=== PATIENT | female | born 1975 | race Caucasian/White ===

== ENCOUNTER 2019-04-20 12:56 | Emergency (ER) | payer SELFPAY ==
[~2019-04-20] VITALS: Ht 165.1 cm; Wt 68.2 kg
[~2019-04-20 12:56] MED LIST: ACET-2027 PO; ACYC400T21 PO; ALBU2.5V52 INH; ASPI-84 PO; AZIT-21 PO; CODE-54 PO; CYCL10TA9 PO; FAMO20TA73 PO; GLIM4TAB PO; LEVO500T69 PO; LISI10TA2 PO; METF-380 PO; MTF500T PO; NEBU1EAC10 MC; ONDA-42 SL; OSLT75CRX PO; PRD20T PO; PREN1TAB39 PO; TRAM50TA2 PO
[2019-04-20] MEDS ORDERED: RT-ALBUTEROL SULF 2.5 MG/3 ML PRE-MIX VIAL INH STA (13:13)
[2019-04-20] MEDS ORDERED: NS IV 1000 ML 1,000 ML IV SCH ×2 (13:13)
[2019-04-20] MEDS ORDERED: RT-SODIUM CHL INHALATION 3 ML VIAL IH ONE (13:15)
[2019-04-20] MEDS ORDERED: cefTRIAXone FOR IV USE 1,000 MG in WATER (STERILE) FOR INJECTION 10 ML IV ONE (13:15)
[2019-04-20] MEDS ORDERED: AZITHROMYCIN INJECTION 500 MG in NS (IVPB) 250 ML IV ONE (13:15)
[2019-04-20] MEDS ORDERED: RT-IPRATROPIUM (ATROVENT) 0.5MG/2.5ML AMP IH ONE (13:15)
--- NOTE | 2019-04-20 13:24 | ED Respiratory ---
General Chief Complaint: Respiratory Problems Stated Complaint: SOA Source: patient, family, EMS Exam Limitations: no limitations History of Present Illness Date Seen by Provider: Apr 20, 2019 Time Seen by Provider: 12:58 Initial Comments The patient presents to ER by EMS from station 3 where family drove her. She has chief complaint of shortness of breath wheezing coughing and nausea vomiting starting about 30 minutes prior to arrival. She had an albuterol inhaler left over from a bronchitis from years ago that she tried use but she was coughing so hard she said she was not able take deep breath and use it. EMS said her oxygen sats were 90% with audible wheezes I gave her albuterol treatment which improved her wheezing and her oxygen sats to 92% on room air. She does not have a history of asthma or COPD. She does not smoke or use recreational drugs or drink alcohol. She does not have a history of coronary disease. She does have a history of diabetes, hyperlipidemia and hypertension. Prior to that she was feeling like she had upper respiratory cold for the past week and a right earache. She went to her doctor late last week and they cleaned out the cerumen from her right ear canal put her on some eardrops and gave her a nasal steroid spray but did not obtain chest x-rays or labs that time. Her cough has been nonproductive. Allergies and Home Medications Allergies Uncoded Allergies: PENICILLIN (Allergy, Unknown, 05/15/14) Home Medications Acetaminophen/Chlor-Mal 1 Each Tablet, 1 EACH PO Q8H PRN for COUGH Prescribed by: KAILEY HOLLOWAY on 08/04/14 1212 Acetaminophen/Codeine 1 Tab Tablet, 1 TAB PO PRN, (Reported) Acyclovir 400 Mg Tablet, 400 MG PO TID, (Reported) Albuterol Sulfate 2.5 Mg/3 Ml Nebu, 2.5 MG INH QID Prescribed by: HENRY SUGGS on 05/15/142101 Azithromycin 250 Mg Tab, 1 TAB PO DAILY Prescribed by: HENRY SUGGS on 05/15/142101 Cyclobenzaprine Hcl 10 Mg Tablet, 1 EACH PO Q8H PRN for SPASMS Prescribed by: HENRY SUGGS on 01/18/15 1324 Glimepiride 4 Mg Tablet, 4 MG PO BID, (Reported) Levofloxacin 500 Mg Tab, 1 EACH PO DAILY Prescribed by: KAILEY HOLLOWAY on 08/04/14 1221 Lisinopril 10 Mg Tablet, 10 MG PO DAILY, (Reported) Metformin Hcl 500 Mg Tablet, 1 EACH PO BID WITH MEALS, (Reported) Ondansetron Hcl 4 Mg Tab, 4 MG SL Q4H PRN for NAUSEA/VOMITING FOR NAUSEA AND VOMITING Prescribed by: KAILEY HOLLOWAY on 08/04/14 1227 Oseltamivir Phosphate 75 Mg Cap, 75 MG PO BID Prescribed by: KAILEY HOLLOWAY on 08/04/14 1212 Prednisone 20 Mg Tablet, 40 MG PO DAILY Prescribed by: HENRY SUGGS on 05/15/14 210 Tramadol Hcl 50 Mg Tablet, 50 MG PO Q4H PRN for PAIN Prescribed by: HENRY SUGGS on 01/18/15 1324 Patient Home Medication List Home Medication List Reviewed: Yes Review of Systems Review of Systems Constitutional: chills, diaphoresis, fever (subjective only), malaise EENTM: No ear discharge, No ear pain Respiratory: cough; No phlegm; short of breath, wheezing Cardiovascular: No chest pain, No palpitations Gastrointestinal: No abdominal pain; nausea (none presently); No vomiting Genitourinary: No discharge, No dysuria Musculoskeletal: No back pain, No joint pain Past Rblklks-Xyzefg-Slnhbx Hx Patient Social History Alcohol Use: Denies Use Recreational Drug Use: No Smoking Status: Never a Smoker Immunizations Up To Date Date of Pneumonia Vaccine: Jun 29, 2012 Date of Influenza Vaccine: Mar 28, 2014 Seasonal Allergies Seasonal Allergies: Yes Past Medical History Hypertension Reproductive Disorders: No Diabetes, Non-Insulin dep Family Medical History No Pertinent Family Hx Physical Exam Vital Signs - First Documented 04/20/19 12:57 Temp 37.2 Pulse 100 Resp 24 B/P (MAP) 178/108 (131) Pulse Ox 96 O2 Delivery Room Air O2 Flow Rate 2.00 Capillary Refill : Height: 5'4" Weight: 250lbs. oz. [id number]; BMI Method:Stated General Appearance: moderate distress, obese Eyes: Bilateral Eye Normal Inspection, Bilateral Eye PERRL, Bilateral Eye EOMI HEENT: PERRL/EOMI, TMs normal, pharynx normal, other (right ear canal pink but without excoriation or inf edema lammation) Neck: non-tender, full range of motion, supple, normal inspection Respiratory: chest non-tender, respiratory distress (mild to moderate), accessory muscle use (mild), wheezing (prolonged expiratory wheezing with some inspiratory wheezing) Cardiovascular: normal peripheral pulses, regular rate, rhythm (. Heart rate in the 90s), no edema Gastrointestinal: normal bowel sounds, non tender, soft Neurologic/Psychiatric: no motor/sensory deficits, alert; No normal mood/affect (mildly anxious); oriented x 3 Skin: normal color, warm/dry Focused Exam Lactate Level 04/20/19 13:20: Lactic Acid Level 1.56 Lactic Acid Level Laboratory Tests Test 04/20/19 13:20 Lactic Acid Level 1.56 MMOL/L (0.50-2.00) Progress/Results/Core Measures Suspected Sepsis SIRS Temperature: Pulse: Respiratory Rate: Laboratory Tests 04/20/19 13:20: White Blood Count 10.2 Blood Pressure / Mean: 04/20/19 13:20: Lactic Acid Level 1.56 Laboratory Tests 04/20/19 13:20: Creatinine 0.74, INR Comment 0.9, Platelet Count 278, Total Bilirubin 0.3 Results/Orders Lab Results Laboratory Tests Test 04/20/19 13:20 04/20/19 13:27 04/20/19 14:55 Range/Units White Blood Count 10.2 4.3-11.0 10^3/uL Red Blood Count 4.75 4.35-5.85 10^6/uL Hemoglobin 13.2 11.5-16.0 G/DL Hematocrit 41 35-52 % Mean Corpuscular Volume 86 80-99 FL Mean Corpuscular Hemoglobin 28 25-34 PG Mean Corpuscular Hemoglobin Concent 32 32-36 G/DL Red Cell Distribution Width 14.2 10.0-14.5 % Platelet Count 278 130-400 10^3/uL Mean Platelet Volume 11.2 H 7.4-10.4 FL Neutrophils (%) (Auto) 55 42-75 % Lymphocytes (%) (Auto) 33 12-44 % Monocytes (%) (Auto) 4 0-12 % Eosinophils (%) (Auto) 7 0-10 % Basophils (%) (Auto) 1 0-10 % Neutrophils # (Auto) 5.6 1.8-7.8 X 10^3 Lymphocytes # (Auto) 3.4 1.0-4.0 X 10^3 Monocytes # (Auto) 0.4 0.0-1.0 X 10^3 Eosinophils # (Auto) 0.7 H 0.0-0.3 10^3/uL Basophils # (Auto) 0.1 0.0-0.1 10^3/uL Prothrombin Time 12.1 L 12.2-14.7 SEC INR Comment 0.9 0.8-1.4 Activated Partial Thromboplast Time 23 L 24-35 SEC Sodium Level 135 135-145 MMOL/L Potassium Level 4.0 3.6-5.0 MMOL/L Chloride Level 103 98-107 MMOL/L Carbon Dioxide Level 24 21-32 MMOL/L Anion Gap 8 5-14 MMOL/L Blood Urea Nitrogen 8 7-18 MG/DL Creatinine 0.74 0.60-1.30 MG/DL Estimat Glomerular Filtration Rate > 60 BUN/Creatinine Ratio 11 Glucose Level 197 H 70-105 MG/DL Lactic Acid Level 1.56 0.50-2.00 MMOL/L Calcium Level 8.9 8.5-10.1 MG/DL Corrected Calcium 9.1 8.5-10.1 MG/DL Magnesium Level 1.9 1.6-2.4 MG/DL Total Bilirubin 0.3 0.1-1.0 MG/DL Aspartate Amino Transf (AST/SGOT) 40 H 5-34 U/L Alanine Aminotransferase (ALT/SGPT) 46 0-55 U/L Alkaline Phosphatase 114 40-136 U/L Total Protein 7.0 6.4-8.2 GM/DL Albumin 3.7 3.2-4.5 GM/DL Blood Gas Puncture Site LEFT RADIAL Blood Gas Patient Temperature 37 Arterial Blood pH 7.35 L 7.37-7.43 Arterial Blood Partial Pressure CO2 41 35-45 MMHG Arterial Blood Partial Pressure O2 81 79-93 MMHG Arterial Blood HCO3 22 L 23-27 MMOL/L Arterial Blood Total CO2 23.4 21.0-31.0 MMOL/L Arterial Blood Oxygen Saturation 95 94-100 % Arterial Blood Base Excess -2.5 -2.5-2.5 MMOL/L Alberto Test POSITIVE Blood Gas Ventilator Setting NO Blood Gas Inspired Oxygen 2 L Micro Results Microbiology 04/20/19 Influenza Types A,B Antigen ([facility]) - Final, Complete My Orders Orders - KRISTIE DENNY Cbc With Automated Diff (04/20/19 13:13) Comprehensive Metabolic Panel (04/20/19 13:13) Blood Culture (04/20/19 13:13) Sputum Culture (04/20/19 13:13) Urinalysis (04/20/19 13:13) Urine Culture (04/20/19 13:13) Protime With Inr (04/20/19 13:13) Partial Thromboplastin Time (04/20/19 13:13) Ed Iv/Invasive Line Start (04/20/19 13:13) Ed Iv/Invasive Line Start (04/20/19 13:13) Vital Signs Adult Sepsis Patie Q15M (04/20/19 13:13) O2 (04/20/19 13:13) Remove Rings In Anticipation O (04/20/19 13:13) Lactic Acid Analyzer (04/20/19 13:13) Influenza A And B Antigens (04/20/19 13:13) Ns Iv 1000 Ml (Sodium Chloride 0.9%) (04/20/19 13:13) Ceftriaxone For Iv Use (Rocephin For I (04/20/19 13:15) Azithromycin Injection (Zithromax Inject (04/20/19 13:15) Ed Iv/Invasive Line Start (04/20/19 13:13) Ns Iv 1000 Ml (Sodium Chloride 0.9%) (04/20/19 13:13) Albuterol Pre-Mix Nebs (Rt) (Proventil (04/20/19 13:13) Ipratropium 0.02% Neb Solution (Atrovent (04/20/19 13:15) Sodium Chl Inhalation (Rt-Sodium Chl Inh (04/20/19 13:15) Svn Small Volume Nebulizer (04/20/19 13:13) Magnesium (04/20/19 13:13) Arterial Blood Gas (04/20/19 13:27) Chest 1 View, Ap/Pa Only (04/20/19 13:43) Arterial Blood Draw (04/20/19 ) Water (Sterile) For Injection (Sterile W (04/20/19 14:01) Methylprednisolone Sod Succ (Solu-Medrol (04/20/19 14:15) Medications Given in ED Current Medications Medications Dose Ordered Sig/Sukhi Route Start Time Stop Time Status Last Admin Dose Admin Azithromycin 500 mg/Sodium Chloride 250 ml @ 250 mls/hr ONCE ONCE IV 04/20/19 13:15 04/20/19 14:14 DC 04/20/19 14:09 250 MLS/HR Ceftriaxone Sodium 1000 mg/ Sterile Water 10 ml @ 200 mls/hr ONCE ONCE IV 04/20/19 13:15 04/20/19 13:18 DC 04/20/19 14:05 200 MLS/HR Ipratropium Kemp 0.5 mg ONCE ONCE IH 04/20/19 13:15 04/20/19 13:18 DC 04/20/19 13:31 0.5 MG Methylprednisolone Sodium Succinate 125 mg ONCE ONCE IVP 04/20/19 14:15 04/20/19 14:16 DC 04/20/19 14:25 125 MG Vital Signs/I&O 04/20/19 04/20/19 04/20/19 12:57 12:57 13:31 Temp 37.2 Pulse 100 Resp 24 B/P (MAP) 178/108 (131) Pulse Ox 96 96 97 O2 Delivery Room Air Nasal Cannula Nasal Cannula O2 Flow Rate 2.00 2.00 2.00 Capillary Refill : Progress Note #1: Time: 13:23 Progress Note Hour-long breathing treatment, ABG, 2 view chest x-ray, septic workup and we will initiate ceftriaxone and azithromycin. She has a stated history of allergy to penicillin but she doesn't know what it is and she is not really sure if it's a real allergy. She denies any nausea at this time. She is afebrile this time. We put her on 2 L by nasal cannula which brought her up from 92% on room air to 96%. Progress Note #2: Time: 15:09 Progress Note Patient's breathing has significantly improved. On room air she is now satting 96%. She has received some IV Solu-Medrol. She is no longer in acute distress and has unremarkable labs and ABG. We have counseled her about her blood sugars as were going to put her on steroids for bronchitis. We've also encouraged her to follow-up in one to 2 months with primary care to discuss doing outpatient pulmonary function testing. She has plenty of albuterol for her nebulizer at [facility]. Follow-up next week with primary care for reevaluation. Diagnostic Imaging Diagonstic Imaging: Xray Plain Films/CT/US/NM/MRI: chest (2v) Comments NAME: PATRICE YOUNG [facility] REC#: [id number] PHYSICIAN: KRISTIE DENNY MD CC: ELHAM STEIN MD; KRISTIE DENNY Page 1 of 1 RADIOLOGY REPORT [facility], [facility]. [place], [place] CC: ELHAM STEIN MD; KRISTIE DENNY Page 1 of 1 RADIOLOGY REPORT NAME: PATRICE YONUG [facility] REC#: [id number] PT STATUS: REG ER : 1975 PHYSICIAN: KRISTIE DENNY MD ADMIT DATE: 04/20/19/ER Signed Date of Exam: 04/20/19 CHEST 1 VIEW, AP/PA ONLY INDICATION: Shortness of breath Portable chest 11:51 p.m. FINDINGS: Heart size and pulmonary vascularity are normal. Lungs are clear. There are no effusions or pneumothoraces. IMPRESSION: Negative chest. Dictated by: Dictated on workstation # [id number] Dict: 04/20/19 1358 Trans: 04/20/19 1442 Interpreted by: ELHAM STEIN MD Electronically signed by: ELHAM STEIN MD 04/20/19 1442 Reviewed: Reviewed by Me Departure Impression Primary Impression: Acute bronchitis Qualified Codes: J20.9 - Acute bronchitis, unspecified Disposition: 01 HOME, SELF-CARE Condition: Improved Departure-Patient Inst. Decision time for Depature: 15:12 Referrals: SUMEET LANE DO (PCP) Primary Care Physician Patient Instructions: Acute Bronchitis, Adult (DC) Add. Discharge Instructions: Start using your nebulized albuterol [id number] every 6 hours or 4 times a day on a schedule. You may take one breathing treatment between scheduled treatments as necessary for wheezing or shortness of breath. Start taking prednisone 2 tablets twice a day for the next 5 days. Plan follow-up primary care doctor early next week by calling today for an appointment. Discuss pulmonary function testing with your primary care doctor in the next couple months. All discharge instructions reviewed with patient and/or family. Voiced understanding. Scripts Prednisone (Prednisone) 20 Mg Tab 40 MG PO BID for 5 Days, #20 TAB 0 Refills Prov: KRISTIE DENNY 04/20/19 Work/School Note: Work Release Form Date Seen in the Emergency Department: Apr 20, 2019 Return to Work: Apr 22, 2019 Restrictions: No Restrictions KRISTIE DENNY Apr 20, 2019 13:24
[2019-04-20 13:28] LABS: BASOPHILS # (AUTO) 0.1 10^3/uL (0.0-0.1); BASOPHILS % (AUTO) 1 % (0-10); EOSINOPHILS # (AUTO) 0.7 10^3/uL (0.0-0.3); EOSINOPHILS % (AUTO) 7 % (0-10); HEMATOCRIT 41 % (35-52); HEMOGLOBIN 13.2 G/DL (11.5-16.0); LYMPHOCYTES # (AUTO) 3.4 X 10^3 (1.0-4.0); LYMPHOCYTES % (AUTO) 33 % (12-44); MEAN CORPUSCULAR HEMOGLOBIN 28 PG (25-34); MEAN CORPUSCULAR HGB CONC 32 G/DL (32-36); MEAN CORPUSCULAR VOLUME 86 FL (80-99); MEAN PLATELET VOLUME 11.2 FL (7.4-10.4); MONOCYTES # (AUTO) 0.4 X 10^3 (0.0-1.0); MONOCYTES % (AUTO) 4 % (0-12); NEUTROPHILS # (AUTO) 5.6 X 10^3 (1.8-7.8); NEUTROPHILS % (AUTO) 55 % (42-75); PLATELET COUNT 278 10^3/uL (130-400); RED CELL DISTRIBUTION WIDTH 14.2 % (10.0-14.5); WHITE BLOOD COUNT 10.2 10^3/uL (4.3-11.0)
[2019-04-20 13:34] LABS: ABG BASE EXCESS -2.5 MMOL/L (-2.5-2.5); ABG OXYGEN SATURATION 95 % (94-100); ABG PCO2 41 MMHG (35-45); ABG PH 7.35 (7.37-7.43); ABG PO2 81 MMHG (79-93); ABG TCO2 23.4 MMOL/L (21.0-31.0)
[2019-04-20 13:36] LABS: ALLENS TEST POSITIVE
[2019-04-20 13:37] LABS: INSPIRED O2 2 L; PATIENT TEMP 37; VENTILATOR NO
[2019-04-20 13:44] LABS: INR 0.9 (0.8-1.4); PROTHROMBIN TIME PATIENT 12.1 SEC (12.2-14.7)
[2019-04-20 13:51] LABS: ALANINE AMINOTRANSFERASE 46 U/L (0-55); ALBUMIN 3.7 GM/DL (3.2-4.5); ALKALINE PHOSPHATASE 114 U/L (40-136); BILIRUBIN,TOTAL 0.3 MG/DL (0.1-1.0); BUN/CREATININE RATIO 11; CALCIUM 8.9 MG/DL (8.5-10.1); CARBON DIOXIDE 24 MMOL/L (21-32); CHLORIDE 103 MMOL/L (98-107); CREATININE SERUM 0.74 MG/DL (0.60-1.30); GFR ESTIMATED > 60; GLUCOSE 197 MG/DL (70-105); MAGNESIUM 1.9 MG/DL (1.6-2.4); SODIUM 135 MMOL/L (135-145)
[2019-04-20] MEDS ORDERED: WATER (STERILE) FOR INJECTION 10 ML ONE (14:01)
--- NOTE | 2019-04-20 14:02 | Diagnostic Imaging Report ---
INDICATION: Shortness of breath Portable chest 11:51 p.m. FINDINGS: Heart size and pulmonary vascularity are normal. Lungs are clear. There are no effusions or pneumothoraces. IMPRESSION: Negative chest. Dictated by: Dictated on workstation # [id number]
[2019-04-20] MEDS ORDERED: methylPREDNISolone 125 MG (Solu-MEDROL) VIAL IVP ONE (14:15)
[2019-04-20 15:15] LABS: BILIRUBIN,URINE NEGATIVE (NEGATIVE); CLARITY,URINE CLEAR; COLOR,URINE YELLOW; GLUCOSE, URINE (UA) 4+ (NEGATIVE); KETONES,URINE NEGATIVE (NEGATIVE); LEUKOCYTE ESTERASE ,URINE NEGATIVE (NEGATIVE); NITRITE,URINE NEGATIVE (NEGATIVE); PH,URINE 5 (5-9); PROTEIN,URINE 3+ (NEGATIVE)
[2019-04-20] MEDS ORDERED: PRD20T PO (15:16)
[2019-04-20 15:25] VITALS: BP 166/104
[2019-04-20 15:30] LABS: BACTERIA,URINE MODERATE /HPF
== END 2019-04-20 15:25 | disposition home or self-care (01) ==
LOC: EDUNIT# 12:56 → ER 12:57
DX: J20.9 Acute bronchitis, unspecified (principal); E11.9 Type 2 diabetes mellitus without complications; I10 Essential (primary) hypertension; E78.5 Hyperlipidemia, unspecified; Z88.0 Allergy status to penicillin; Z79.84 Long term (current) use of oral hypoglycemic drugs; Z79.52 Long term (current) use of systemic steroids
CPT/HCPCS: 36415; 36600; 71045; 80053; 81000; 82805; 83605; 83735; 85025; 85610; 85730; 87040; 87088; 87804; 94640; 94644; 96361; 96374; 96375

== ENCOUNTER 2019-06-03 23:27 | Inpatient (IN) | payer SELFPAY ==
[~2019-06-03] VITALS: Ht 167.7 cm; Wt 117.3 kg
[2019-06-03] MEDS ORDERED: methylPREDNISolone 125 MG (Solu-MEDROL) VIAL IV STA (23:33)
[2019-06-03] MEDS ORDERED: NS IV 1000 ML 1,000 ML IV SCH ×2 (23:33)
[2019-06-03] MEDS ORDERED: RT-ALBUTEROL SULF 2.5 MG/3 ML PRE-MIX VIAL INH STA (23:33)
--- NOTE | 2019-06-03 23:40 | ED Respiratory ---
General Chief Complaint: Respiratory Problems Stated Complaint: SOA Source: patient Exam Limitations: no limitations History of Present Illness Date Seen by Provider: Jun 03, 2019 Time Seen by Provider: 23:27 Initial Comments Patient presents to ER by private conveyance chief complaint shortness of breath wheezing nonproductive cough. Had some subjective chills yesterday but no fever. She's having some pain in her left chest radiating around from the back to the front worse on inspiration or coughing. No history of coronary disease. She is not a smoker. She doesn't not have known COPD or asthma but she has been dealing with this since February and has been on albuterol inhaler and pro-air. She's taken about 8 doses today. She sees Aura Soares at [facility]. 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 She has been on steroids throughout this upset but not presently. It got worse in the past day or so. Allergies and Home Medications Allergies Uncoded Allergies: PENICILLIN (Allergy, Unknown, 05/15/14) Home Medications Acetaminophen/Chlor-Mal 1 Each Tablet, 1 EACH PO Q8H PRN for COUGH Prescribed by: KAILEY HOLLOWAY on 08/04/14 1212 Acetaminophen/Codeine 1 Tab Tablet, 1 TAB PO PRN, (Reported) Acyclovir 400 Mg Tablet, 400 MG PO TID, (Reported) Albuterol Sulfate 2.5 Mg/3 Ml Nebu, 2.5 MG INH QID Prescribed by: HENRY SUGGS on 05/15/142101 Azithromycin 250 Mg Tab, 1 TAB PO DAILY Prescribed by: HENRY SUGGS on 05/15/142101 Cyclobenzaprine Hcl 10 Mg Tablet, 1 EACH PO Q8H PRN for SPASMS Prescribed by: HENRY SUGGS on 01/18/15 1324 Glimepiride 4 Mg Tablet, 4 MG PO BID, (Reported) Levofloxacin 500 Mg Tab, 1 EACH PO DAILY Prescribed by: KAILEY HOLLOWAY on 08/04/14 1221 Lisinopril 10 Mg Tablet, 10 MG PO DAILY, (Reported) Metformin Hcl 500 Mg Tablet, 1 EACH PO BID WITH MEALS, (Reported) Ondansetron Hcl 4 Mg Tab, 4 MG SL Q4H PRN for NAUSEA/VOMITING FOR NAUSEA AND VOMITING Prescribed by: KAILEY HOLLOWAY on 08/04/14 1227 Oseltamivir Phosphate 75 Mg Cap, 75 MG PO BID Prescribed by: KAILEY HOLLOWAY on 08/04/14 1212 Prednisone 20 Mg Tablet, 40 MG PO DAILY Prescribed by: HENRY SUGGS on 05/15/142101 Prednisone 20 Mg Tab, 40 MG PO BID Prescribed by: KRISTIE DENNY on 04/20/19 1516 Tramadol Hcl 50 Mg Tablet, 50 MG PO Q4H PRN for PAIN Prescribed by: HENRY SUGGS on 01/18/15 1324 Patient Home Medication List Home Medication List Reviewed: Yes Review of Systems Review of Systems Constitutional: No chills, No diaphoresis, No fever; malaise EENTM: No ear discharge, No hearing loss, No ear pain Respiratory: cough; No phlegm; short of breath; No stridor Cardiovascular: No chest pain, No edema Gastrointestinal: No abdominal pain, No nausea, No vomiting Genitourinary: No discharge, No dysuria : No Musculoskeletal: No back pain, No joint pain Skin: No pruritus, No rash Psychiatric/Neurological: Denies Headache, Denies Numbness All Other Systems Reviewed Negative Unless Noted: Yes Past Ruylpxa-Tofsms-Fekmcy Hx Patient Social History Alcohol Use: Denies Use Recreational Drug Use: No Smoking Status: Never a Smoker 2nd Hand Smoke Exposure: No Immunizations Up To Date Date of Pneumonia Vaccine: Jun 29, 2012 Date of Influenza Vaccine: Mar 28, 2014 Seasonal Allergies Seasonal Allergies: Yes Past Medical History Surgeries: No Respiratory: Yes Asthma, Chronic Bronchitis Currently Using CPAP: No Currently Using BIPAP: No Cardiac: Yes Hypertension Neurological: No Reproductive Disorders: No Gastrointestinal: No Musculoskeletal: No Endocrine: Yes Diabetes, Insulin dep, Diabetes, Non-Insulin dep HEENT: No Cancer: No Psychosocial: No Integumentary: Yes (SHINGLES) Blood Disorders: No Family Medical History No Pertinent Family Hx Physical Exam Vital Signs - First Documented 06/03/19 23:30 Temp 36.6 Pulse 98 Resp 22 B/P (MAP) 187/107 (133) Capillary Refill : Height: 5'4" Weight: 250lbs. oz. 113.803895rl; 25.00 BMI Method:Stated General Appearance: WD/WN, moderate distress Eyes: Bilateral Eye Normal Inspection, Bilateral Eye PERRL, Bilateral Eye EOMI HEENT: PERRL/EOMI, normal ENT inspection, TMs normal, pharynx normal Neck: full range of motion, supple, normal inspection Respiratory: chest non-tender, respiratory distress (moderate, tripoding, purse lip breathing), accessory muscle use (moderate), wheezing (the room), expiration (prolonged) Cardiovascular: normal peripheral pulses, regular rate, rhythm Neurologic/Psychiatric: no motor/sensory deficits, alert, normal mood/affect, o riented x 3 Skin: normal color, warm/dry Focused Exam Lactate Level 06/03/19 23:40: Lactic Acid Level 1.42 Lactic Acid Level Laboratory Tests Test 06/03/19 23:40 Lactic Acid Level 1.42 MMOL/L (0.50-2.00) Progress/Results/Core Measures Suspected Sepsis SIRS Temperature: Pulse: Respiratory Rate: Laboratory Tests 06/03/19 23:40: White Blood Count 11.9H Blood Pressure / Mean: 06/03/19 23:40: Lactic Acid Level 1.42 Laboratory Tests 06/03/19 23:40: Creatinine 0.95, INR Comment 0.8, Platelet Count 315, Total Bilirubin 0.3 Results/Orders Lab Results Laboratory Tests Test 06/03/19 23:40 06/03/19 23:48 Range/Units White Blood Count 11.9 H 4.3-11.0 10^3/uL Red Blood Count 5.09 4.35-5.85 10^6/uL Hemoglobin 14.2 11.5-16.0 G/DL Hematocrit 44 35-52 % Mean Corpuscular Volume 86 80-99 FL Mean Corpuscular Hemoglobin 28 25-34 PG Mean Corpuscular Hemoglobin Concent 33 32-36 G/DL Red Cell Distribution Width 14.7 H 10.0-14.5 % Platelet Count 315 130-400 10^3/uL Mean Platelet Volume 10.4 7.4-10.4 FL Neutrophils (%) (Auto) 67 42-75 % Lymphocytes (%) (Auto) 22 12-44 % Monocytes (%) (Auto) 4 0-12 % Eosinophils (%) (Auto) 6 0-10 % Basophils (%) (Auto) 1 0-10 % Neutrophils # (Auto) 8.0 H 1.8-7.8 X 10^3 Lymphocytes # (Auto) 2.7 1.0-4.0 X 10^3 Monocytes # (Auto) 0.4 0.0-1.0 X 10^3 Eosinophils # (Auto) 0.7 H 0.0-0.3 10^3/uL Basophils # (Auto) 0.1 0.0-0.1 10^3/uL Prothrombin Time 11.9 L 12.2-14.7 SEC INR Comment 0.8 0.8-1.4 Activated Partial Thromboplast Time 27 24-35 SEC Sodium Level 140 135-145 MMOL/L Potassium Level 4.1 3.6-5.0 MMOL/L Chloride Level 105 98-107 MMOL/L Carbon Dioxide Level 23 21-32 MMOL/L Anion Gap 12 5-14 MMOL/L Blood Urea Nitrogen 9 7-18 MG/DL Creatinine 0.95 0.60-1.30 MG/DL Estimat Glomerular Filtration Rate > 60 BUN/Creatinine Ratio 9 Glucose Level 130 H 70-105 MG/DL Lactic Acid Level 1.42 0.50-2.00 MMOL/L Calcium Level 9.5 8.5-10.1 MG/DL Corrected Calcium 9.4 8.5-10.1 MG/DL Magnesium Level 2.1 1.6-2.4 MG/DL Total Bilirubin 0.3 0.1-1.0 MG/DL Aspartate Amino Transf (AST/SGOT) 18 5-34 U/L Alanine Aminotransferase (ALT/SGPT) 24 0-55 U/L Alkaline Phosphatase 101 40-136 U/L Troponin I < 0.028 <0.028 NG/ML Total Protein 7.5 6.4-8.2 GM/DL Albumin 4.1 3.2-4.5 GM/DL Blood Gas Puncture Site RIGHT RADIAL Blood Gas Patient Temperature 36.6 Arterial Blood pH 7.37 7.37-7.43 Arterial Blood Partial Pressure CO2 40 35-45 MMHG Arterial Blood Partial Pressure O2 64 L 79-93 MMHG Arterial Blood HCO3 23 23-27 MMOL/L Arterial Blood Total CO2 23.8 21.0-31.0 MMOL/L Arterial Blood Oxygen Saturation 93 L 94-100 % Arterial Blood Base Excess -2.1 -2.5-2.5 MMOL/L Alberto Test POSITIVE Blood Gas Ventilator Setting NO Blood Gas Inspired Oxygen ROOM AIR Micro Results Microbiology 06/03/19 Influenza Types A,B Antigen ([facility]) - Final, Complete My Orders Orders - KRISTIE DENNY Cbc With Automated Diff (06/03/19 23:33) Comprehensive Metabolic Panel (06/03/19 23:33) Blood Culture (06/03/19 23:33) Sputum Culture (06/03/19:33) Urinalysis (06/03/19:33) Urine Culture (06/03/19:33) Protime With Inr (06/03/19:33) Partial Thromboplastin Time (06/03/19:33) Ed Iv/Invasive Line Start (06/03/19 23:33) Ed Iv/Invasive Line Start (06/03/19 23:33) Ekg Tracing (06/03/19:33) Troponin I (06/03/19:33) Vital Signs Adult Sepsis Patie Q15M (06/03/19 23:33) O2 (06/03/19 23:33) Remove Rings In Anticipation O (06/03/19:33) Lactic Acid Analyzer (06/03/19:33) Influenza A And B Antigens (06/03/19 23:33) Ns Iv 1000 Ml (Sodium Chloride 0.9%) (06/03/19 23:33) Ceftriaxone For Iv Use (Rocephin For I (06/03/19 23:45) Azithromycin Injection (Zithromax Inject (06/03/19 23:45) Ed Iv/Invasive Line Start (06/03/19 23:33) Ns Iv 1000 Ml (Sodium Chloride 0.9%) (06/03/19 23:33) Albuterol Pre-Mix Nebs (Rt) (Proventil (06/03/19 23:33) Albuterol/Ipra Inhalation Soln (Duoneb I (06/03/19 23:45) Methylprednisolone Sod Succ (Solu-Medrol (06/03/19 23:33) Svn Small Volume Nebulizer (06/03/19 23:33) Magnesium (06/03/19 23:33) O2 (06/03/19 23:33) Arterial Blood Gas (06/03/19 23:50) Chest 1 View, Ap/Pa Only (06/04/19 00:01) Ondansetron Injection (Zofran Injectio (06/04/19 00:45) Medications Given in ED Current Medications Medications Dose Ordered Sig/Sukhi Route Start Time Stop Time Status Last Admin Dose Admin Albuterol/ Ipratropium 3 ml ONCE ONCE INH 06/03/19 23:45 06/03/19 23:46 DC 06/03/19 23:53 3 ML Azithromycin 500 mg/Sodium Chloride 250 ml @ 250 mls/hr ONCE ONCE IV 06/03/19 23:45 06/04/19 00:44 DC 06/04/19 00:33 250 MLS/HR Ceftriaxone Sodium 1000 mg/ Sterile Water 10 ml @ 200 mls/hr ONCE ONCE IV 06/03/19 23:45 06/03/19 23:47 DC 06/04/19 00:32 200 MLS/HR Ondansetron HCl 8 mg ONCE ONCE IVP 06/04/19 00:45 06/04/19 00:46 DC 06/04/19 01:24 8 MG Vital Signs/I&O 06/03/19 06/04/19 06/04/19 23:30 00:30 00:30 Temp 36.6 Pulse 98 Resp 22 B/P (MAP) 187/107 (133) O2 Delivery Nasal Cannula O2 Flow Rate 2.00 Capillary Refill : Progress Note : Time: 01:09 Progress Note Hour-long breathing treatment. Workup. Revealing evidence of bacterial infection. She's had no fevers, elevated white count or infiltrate on the x-ray. We gave her 125 mg of Solu-Medrol. After her hour-long her wheezing is no longer audible across the room however she is still having significant wheezing. Plan to give her 2 g of magnesium IV. She has elevated blood pressures were low hydralazine and Toradol for her pleuritic pain. No history of coronary disease. Initial EKG and troponin were negative. Held what was left of the second liter fluids. ECG Initial ECG Impression Date: Jun 03, 2019 Initial ECG Impression Time: 23:52 Initial ECG Rate: 93 Initial ECG Rhythm: Normal Sinus Initial ECG Intervals: Normal Initial ECG Impression: Normal Comment No clinically relevant ST elevation or depression. Diagnostic Imaging Diagonstic Imaging: Xray Plain Films/CT/US/NM/MRI: chest (1v) Comments No acute cardiopulmonary process noted on chest x-ray. Reviewed: Reviewed by Me Departure Communication (Admissions) Time/Spoke to Admitting Phy: 00:55 Discussed case lab/x-ray EKG with Dr. Santos and she agrees to observe the patient. Consult with pulmonology. Impression Primary Impression: Acute bronchitis Qualified Codes: J20.9 - Acute bronchitis, unspecified Additional Impressions: Asthma exacerbation Qualified Codes: J45.901 - Unspecified asthma with (acute) exacerbation Hypoxia Pleurisy Disposition: ADMITTED INPATIENT Condition: Stable Admissions Decision to Admit Reason: Admit from ER (General) Decision to Admit/Date: Jun 03, 2019 Time/Decision to Admit Time: 00:55 Departure-Patient Inst. Referrals: SUMEET LANE DO (PCP/Family) Primary Care Physician KRISTIE DENNY Jun 03, 2019 23:40 POS
[2019-06-03] MEDS ORDERED: AZITHROMYCIN INJECTION 500 MG in NS (IVPB) 250 ML IV ONE (23:45)
[2019-06-03] MEDS ORDERED: RT-ALBUTEROL/IPRATROPIUM 3 ML (DUONEB) VIAL INH ONE (23:45)
[2019-06-03] MEDS ORDERED: cefTRIAXone FOR IV USE 1,000 MG in WATER (STERILE) FOR INJECTION 10 ML IV ONE (23:45)
[2019-06-03 23:50] LABS: BASOPHILS # (AUTO) 0.1 10^3/uL (0.0-0.1); BASOPHILS % (AUTO) 1 % (0-10); EOSINOPHILS # (AUTO) 0.7 10^3/uL (0.0-0.3); EOSINOPHILS % (AUTO) 6 % (0-10); HEMATOCRIT 44 % (35-52); HEMOGLOBIN 14.2 G/DL (11.5-16.0); LYMPHOCYTES # (AUTO) 2.7 X 10^3 (1.0-4.0); LYMPHOCYTES % (AUTO) 22 % (12-44); MEAN CORPUSCULAR HEMOGLOBIN 28 PG (25-34); MEAN CORPUSCULAR HGB CONC 33 G/DL (32-36); MEAN CORPUSCULAR VOLUME 86 FL (80-99); MEAN PLATELET VOLUME 10.4 FL (7.4-10.4); MONOCYTES # (AUTO) 0.4 X 10^3 (0.0-1.0); MONOCYTES % (AUTO) 4 % (0-12); NEUTROPHILS % (AUTO) 67 % (42-75); PLATELET COUNT 315 10^3/uL (130-400); RED CELL DISTRIBUTION WIDTH 14.7 % (10.0-14.5); WHITE BLOOD COUNT 11.9 10^3/uL (4.3-11.0)
[2019-06-03 23:56] LABS: ABG BASE EXCESS -2.1 MMOL/L (-2.5-2.5); ABG OXYGEN SATURATION 93 % (94-100); ABG PCO2 40 MMHG (35-45); ABG PH 7.37 (7.37-7.43); ABG PO2 64 MMHG (79-93); ABG TCO2 23.8 MMOL/L (21.0-31.0); ALLENS TEST POSITIVE; INSPIRED O2 ROOM AIR; PATIENT TEMP 36.6; VENTILATOR NO
[2019-06-04] VITALS (9 sets, daily range): BP systolic 117–187; BP diastolic 62–107
[2019-06-04 00:07] LABS: ALANINE AMINOTRANSFERASE 24 U/L (0-55); ALBUMIN 4.1 GM/DL (3.2-4.5); ALKALINE PHOSPHATASE 101 U/L (40-136); BILIRUBIN,TOTAL 0.3 MG/DL (0.1-1.0); BUN/CREATININE RATIO 9; CALCIUM 9.5 MG/DL (8.5-10.1); CARBON DIOXIDE 23 MMOL/L (21-32); CHLORIDE 105 MMOL/L (98-107); CREATININE SERUM 0.95 MG/DL (0.60-1.30); GFR ESTIMATED > 60; GLUCOSE 130 MG/DL (70-105); MAGNESIUM 2.1 MG/DL (1.6-2.4); POTASSIUM 4.1 MMOL/L (3.6-5.0); SODIUM 140 MMOL/L (135-145); TOTAL PROTEIN 7.5 GM/DL (6.4-8.2)
[2019-06-04 00:18] LABS: INR 0.8 (0.8-1.4); PROTHROMBIN TIME PATIENT 11.9 SEC (12.2-14.7)
[2019-06-04] MEDS ORDERED: ONDANSETRON 4 MG/2 ML (SDV) Z0FRAN IVP ONE (00:45)
[2019-06-04] MEDS ORDERED: MAGNESIUM 1 GM/100 ML IVPB 100 ML IV ONE (01:15)
[2019-06-04] MEDS ORDERED: hydrALAZINE (APESOLINE) 20 MG/ML VIAL IV ONE (01:15)
[2019-06-04] MEDS ORDERED: KETOROLAC 30 MG/ML VIAL IVP ONE (01:15)
[2019-06-04 01:20] LABS: BILIRUBIN,URINE NEGATIVE (NEGATIVE); CLARITY,URINE CLEAR; COLOR,URINE YELLOW; GLUCOSE, URINE (UA) 3+ (NEGATIVE); KETONES,URINE NEGATIVE (NEGATIVE); LEUKOCYTE ESTERASE ,URINE NEGATIVE (NEGATIVE); NITRITE,URINE NEGATIVE (NEGATIVE); PROTEIN,URINE NEGATIVE (NEGATIVE)
[2019-06-04 01:27] LABS: BACTERIA,URINE TRACE /HPF; SQUAMOUS EPITHELIAL CELL,UR 0-2 /HPF
[2019-06-04] MEDS ORDERED: ACETAMINOPHEN 500 MG TAB (TYLENOL) PO PRN (03:30)
[2019-06-04] MEDS ORDERED: ONDANSETRON 4 MG/2 ML (SDV) Z0FRAN IV PRN (03:30)
[2019-06-04] MEDS ORDERED: PROMETHAZINE INJ 25 MG/ML (PHENERGAN) AMP IV PRN (03:30)
[2019-06-04] MEDS ORDERED: KETOROLAC 15 MG/ML VIAL IVP PRN (03:30)
[2019-06-04 04:00] LABS: BASOPHILS % (AUTO) 0 % (0-10); EOSINOPHILS # (AUTO) 0.1 10^3/uL (0.0-0.3); EOSINOPHILS % (AUTO) 1 % (0-10); HEMATOCRIT 43 % (35-52); HEMOGLOBIN 13.7 G/DL (11.5-16.0); LYMPHOCYTES % (AUTO) 9 % (12-44); MEAN CORPUSCULAR HEMOGLOBIN 28 PG (25-34); MEAN CORPUSCULAR HGB CONC 32 G/DL (32-36); MEAN CORPUSCULAR VOLUME 86 FL (80-99); MEAN PLATELET VOLUME 10.6 FL (7.4-10.4); MONOCYTES # (AUTO) 0.1 X 10^3 (0.0-1.0); MONOCYTES % (AUTO) 1 % (0-12); NEUTROPHILS # (AUTO) 9.9 X 10^3 (1.8-7.8); NEUTROPHILS % (AUTO) 89 % (42-75); PLATELET COUNT 264 10^3/uL (130-400); RED CELL DISTRIBUTION WIDTH 14.8 % (10.0-14.5); WHITE BLOOD COUNT 11.1 10^3/uL (4.3-11.0)
[2019-06-04 04:27] LABS: ALANINE AMINOTRANSFERASE 22 U/L (0-55); ALKALINE PHOSPHATASE 96 U/L (40-136); BILIRUBIN,TOTAL 0.2 MG/DL (0.1-1.0); BUN/CREATININE RATIO 11; CALCIUM 8.9 MG/DL (8.5-10.1); CARBON DIOXIDE 19 MMOL/L (21-32); CHLORIDE 107 MMOL/L (98-107); CREATININE SERUM 0.81 MG/DL (0.60-1.30); GFR ESTIMATED > 60; GLUCOSE 191 MG/DL (70-105); SODIUM 138 MMOL/L (135-145); TOTAL PROTEIN 7.3 GM/DL (6.4-8.2)
[2019-06-04] MEDS: MAGNESIUM 1 GM/D5W 100 ML IVPB IV SCH ×2 (04:46→06:21)
[2019-06-04] MEDS: methylPREDNISolone 40 MG/ML (Solu-MEDROL) VIAL IV SCH ×4 (06:21→23:16)
[2019-06-04] MEDS: inSUlin ASPART (NovoLOG) 1 UNIT/0.01 ML (CHARGE PER UNIT) SC SCH ×7 (06:21→21:55)
--- NOTE | 2019-06-04 07:07 | Diagnostic Imaging Report ---
EXAMINATION: Chest radiograph, portable AP view. DATE: 06/04/2019 12:22 AM hours. INDICATION: 43-year-old female, difficulty breathing. COMPARISON: April 20, 2019. FINDINGS: Stable overall appearance of the cardiomediastinal silhouette. There is no identified pneumothorax. There is no large pleural effusion. There is no identified focal airspace consolidation. IMPRESSION: No identified acute cardiopulmonary abnormality. Dictated by: Dictated on workstation # [id number]
--- NOTE | 2019-06-04 08:58 | Diagnostic Imaging Report ---
EXAMINATION: CHEST (PA AND LATERAL) CLINICAL INDICATION: 43-year-old female, hypoxia. COMPARISON: June 04, 2019 0019 hours. FINDINGS: Heart size and mediastinal contours are unremarkable. There is no identified pneumothorax. There is no pleural effusion. There is no identified focal airspace consolidation. IMPRESSION: No identified acute cardiopulmonary abnormality. Dictated by: Dictated on workstation # [id number]
[2019-06-04] MEDS ORDERED: RT-ALBUTEROL/IPRATROPIUM 3 ML (DUONEB) VIAL INH PRN ×2 (09:15→10:00)
[2019-06-04] MEDS: lisINopril 10 MG (PRINIVIL) TABLET PO SCH (11:15)
--- NOTE | 2019-06-04 12:10 | History & Physical-Hospitalist ---
History of Present Illness HPI/Chief Complaint Chief complaint: Status asthmaticus History of present illness: This is a 43-year-old white female who lives with her mother who has a past medical history of wheezing just recent diagnosis who presented to [facility] with shortness of breath and wheezing and multiple ER visits in urgent care visits recently for the same thing. They do have a family history of asthma. She is currently improved on IV steroids and nebulizer treatments and patient is ready to be transferred to the floor. She does appear to be at risk for obstructive sleep apnea so she will need a sleep study as what I'm recommending since that in itself could cause the respiratory issues of recent past. Source: patient Exam Limitations: no limitations Date Seen 06/04/19 Time Seen by a Provider: 10:30 Attending Physician Amanda Santos DO PCP Reena Giordano DO Referring Physician Date of Admission Jun 04, 2019 at 01:00 Home Medications & Allergies Home Medications Reviewed patient Home Medication Reconciliation performed by pharmacy medication reconciliations installation technician and/or nursing. Patients Allergies have been reviewed. Allergies Allergies Coded Allergies Penicillins (Verified Allergy, Unknown, 06/04/19) Past Xxhzwki-Dkywxg-Korxsg Hx Past Med/Social Hx: Reviewed Nursing Past Med/Soc Hx, Reviewed and Corrections made Patient Social History Marrital Status: single Employed/Student: unemployed Alcohol Use: Denies Use Recreational Drug Use: No Smoking Status: Never a Smoker 2nd Hand Smoke Exposure: No Recent Foreign Travel: No Contact w/other who traveled: No Recent Hopitalizations: No Recent Infectious Disease Expo: No Immunizations Up To Date Date of Pneumonia Vaccine: Jun 29, 2012 Date of Influenza Vaccine: Apr 28, 2019 Seasonal Allergies Seasonal Allergies: Yes Past Medical History Currently Using CPAP: No Currently Using BIPAP: No Cardiac: Hypertension Reproductive: No Endocrine: Diabetes, Insulin dep, Diabetes, Non-Insulin dep History of Blood Disorders: No Family History No Pertinent Family Hx Review of Systems Constitutional: see HPI Respiratory: cough, dyspnea on exertion, wheezing Physical Exam Physical Exam Vital Signs Vital Signs - First Documented 06/03/19 06/04/19 06/04/19 23:30 02:44 08:07 Temp 36.6 Pulse 98 Resp 22 B/P (MAP) 187/107 (133) Pulse Ox 97 FiO2 21 Capillary Refill : Less Than 3 Seconds Height, Weight, BMI Height: 5'4" Weight: 250lbs. oz. 113.713211yh; 41.28 BMI Method:Stated General Appearance: No Apparent Distress, WD/WN, Chronically ill, Obese Eyes: Right Eye Normal Inspection, Right Eye PERRL HEENT: PERRL/EOMI, Normal ENT Inspection, Pharynx Normal, Moist Mucous Membranes Neck: Full Range of Motion, Normal Inspection, Non Tender Respiratory: Chest Non Tender, No Accessory Muscle Use, No Respiratory Distress, Decreased Breath Sounds, Wheezing Cardiovascular: Regular Rate, Rhythm, No Edema, No Gallop, No JVD, No Murmur, Normal Peripheral Pulses Gastrointestinal: Normal Bowel Sounds, No Organomegaly, No Pulsatile Mass, Non Tender, Soft Back: Normal Inspection, No CVA Tenderness, No Vertebral Tenderness Extremity: Normal Capillary Refill, Normal Inspection, Normal Range of Motion, Non Tender, No Calf Tenderness, No Pedal Edema Neurologic/Psychiatric: Alert, Oriented x3, No Motor/Sensory Deficits, Normal Mood/Affect Skin: Normal Color, Warm/Dry Lymphatic: No Adenopathy Results Results/Procedures Labs Laboratory Tests 06/03/19 23:40 06/04/19 03:50 Patient resulted labs reviewed. Assessment/Plan Admission Diagnosis Assessment: Status asthmaticus Morbid obesity with BMI of 41 Suspicion for obstructive sleep apnea Plan: Nebulizers IV steroids Appreciate Dr. Medrano Need sleep study Admission Status: Inpatient Order (span 2 midnights) Reason for Inpatient Admission: Status asthmaticus after multiple ER visits and failed outpatient treatment Diagnosis/Problems Diagnosis/Problems (1) Status asthmaticus (2) Morbid obesity Clinical Quality Measures DVT/VTE Risk/Contraindication: Risk Factor Score Per Nursin RFS Level Per Nursing on Admit: 4+=Very High AMANDA SANTOS DO Jun 04, 2019 12:10 POS
[2019-06-04] MEDS: RT-ADVAIR HFA 115/21 MCG PER PUFF IH SCH ×2 (13:14→19:35)
--- NOTE | 2019-06-04 13:42 | NUR ---
patient to 433-1 at this time via w/c accompanied by TALISHA Bardales.
--- NOTE | 2019-06-04 13:45 | Pulmonary Consultation ---
History of Present Illness History of Present Illness Date Seen by Provider: Jun 04, 2019 Time Seen by Provider: 13:39 Date of Admission History of Present Illness 43yo presented to ED secondary to worsening SOB, wheezing, left pleuritic CP radiating to back. and nonproductive cough. never smoker. Symptoms started in February. She has been on prednisone on and off since February and continues to worsen. Allergies and Home Medications Allergies Coded Allergies: Penicillins (Verified Allergy, Unknown, 06/04/19) Home Medications Acetaminophen/Chlor-Mal 1 Each Tablet, 1 EACH PO Q8H PRN for COUGH Prescribed by: KAILEY HOLLOWAY on 08/04/141211 Acetaminophen/Codeine 1 Tab Tablet, 1 TAB PO PRN, (Reported) Acyclovir 400 Mg Tablet, 400 MG PO TID, (Reported) Albuterol Sulfate 2.5 Mg/3 Ml Nebu, 2.5 MG INH QID Prescribed by: HENRY SUGGS on 05/15/142101 Azithromycin 250 Mg Tab, 1 TAB PO DAILY Prescribed by: HENRY SUGGS on 05/15/142101 Cyclobenzaprine Hcl 10 Mg Tablet, 1 EACH PO Q8H PRN for SPASMS Prescribed by: HENRY SUGGS on 01/18/15 132 Glimepiride 4 Mg Tablet, 4 MG PO BID, (Reported) Levofloxacin 500 Mg Tab, 1 EACH PO DAILY Prescribed by: KAILEY HOLLOWAY on 08/04/14 122 Lisinopril 10 Mg Tablet, 10 MG PO DAILY, (Reported) Metformin Hcl 500 Mg Tablet, 1 EACH PO BID WITH MEALS, (Reported) Ondansetron Hcl 4 Mg Tab, 4 MG SL Q4H PRN for NAUSEA/VOMITING FOR NAUSEA AND VOMITING Prescribed by: KAILEY HOLLOWAY on 08/04/14 122 Oseltamivir Phosphate 75 Mg Cap, 75 MG PO BID Prescribed by: KAILEY HOLLOWAY on 08/04/14 121 Prednisone 20 Mg Tablet, 40 MG PO DAILY Prescribed by: HENRY SUGGS on 05/15/142101 Prednisone 20 Mg Tab, 40 MG PO BID Prescribed by: KRISTIE DENNY on 04/20/19 1516 Tramadol Hcl 50 Mg Tablet, 50 MG PO Q4H PRN for PAIN Prescribed by: HENRY SUGGS on 01/18/15 1324 Past Ttyyvmi-Hsyiqq-Nysvbx Hx Patient Social History Alcohol Use: Denies Use Recreational Drug Use: No Smoking Status: Never a Smoker 2nd Hand Smoke Exposure: No Recent Foreign Travel: No Contact w/Someone Who Travel: No Recent Infectious Disease Expo: No Recent Hopitalizations: No Physical Abuse: No Sexual Abuse: No Mistreated: No Fear: No Immunizations Up To Date Date of Pneumonia Vaccine: Jun 29, 2012 Date of Influenza Vaccine: Apr 28, 2019 Seasonal Allergies Seasonal Allergies: Yes Past Medical History Surgeries: No Respiratory: Yes Asthma, Chronic Bronchitis Currently Using CPAP: No Currently Using BIPAP: No Cardiac: Yes Hypertension Neurological: No Reproductive Disorders: No Genitourinary: No Gastrointestinal: No Musculoskeletal: No Endocrine: Yes Diabetes, Insulin dep, Diabetes, Non-Insulin dep HEENT: No Cancer: No Psychosocial: No Integumentary: Yes (SHINGLES) Blood Disorders: No Family Medical History No Pertinent Family Hx Review of Systems Time Seen by Provider: 14:04 Constitutional: Fever, Chills, Sweats, Weakness, Malaise, Other Eyes: No: Pain, Vision change, Conjunctivae inflammation, Eyelid inflammation, Other, Redness ENT: Nose discharge, Nose congestion; No: Ear pain, Ear discharge, Nose pain, Mouth pain, Mouth swelling, Throat pain, Throat swelling, Other Respiratory: Cough, Dry, Shortness of breath, SOB with excertion, Wheezing, Pleuritic Pain Cardiovascular: Chest Pain, Palpitations, Orthopnea, Paroxysmal Noc. Dyspnea, Lt Headedness Gastrointestinal: No: Nausea, Vomiting, Abdominal Pain, Diarrhea, Constipation, Melena, Hematochezia, Other Genitourinary: No Dysuria, No Frequency, No Incontinence, No Hematuria, No Retention, No Other Sepsis Event Evaluation Height, Weight, BMI Height: 5'4" Weight: 250lbs. oz. 113.362477ff; 41.28 BMI Method:Stated Exam Exam Vital Signs Date Time Temp Pulse Resp B/P (MAP) Pulse Ox O2 Delivery O2 Flow Rate FiO2 06/04/19 12:00 98 21 171/97 (121) 92 Nasal Cannula 2.00 06/04/19 12:00 Nasal Cannula 2.00 06/04/19 12:00 36.6 06/04/19 09:00 96 Nasal Cannula 2.00 06/04/19 08:07 97 Nasal Cannula 2.00 06/04/19 08:07 36.6 22 93 21 12/7/19 08:00 78 11 117/62 (80) 98 Nasal Cannula 2.00 06/04/19 08:00 Nasal Cannula 2.00 06/04/19 07:00 81 06/04/19 04:41 95 17 168/98 (121) 97 Nasal Cannula 2.00 06/04/19 04:00 Nasal Cannula 2.00 06/04/19 03:00 96 20 159/81 (107) 96 Nasal Cannula 2.00 06/04/19 02:53 36.8 06/04/19 02:53 99 13 170/85 (113) 96 Nasal Cannula 2.00 06/04/19 02:53 36.8 96 19 170/85 96 Nasal Cannula 2.00 06/04/19 02:53 102 06/04/19 02:53 96 Nasal Cannula 2.00 06/04/19 02:44 36.6 105 20 176/97 (133) 97 Nasal Cannula 2.00 06/04/19 00:30 06/04/19 00:30 Nasal Cannula 2.00 06/03/19 23:30 36.6 98 22 187/107 (133) I & O 06/04/19 07:00 Intake Total 3260 ml Output Total 1900 ml Balance 1360 ml Height & Weight Height: 5'4" Weight: 250lbs. oz. 113.010647qu; 41.28 BMI Method:Stated General Appearance: Anxious, Chronically ill, Mild Distress, Obese HEENT: PERRL/EOMI, Pharynx Normal Neck: Full Range of Motion, Non Tender, Supple Respiratory: No Accessory Muscle Use, No Respiratory Distress, Decreased Breath Sounds, Wheezing Cardiovascular: Regular Rate, Rhythm, No Edema, No Gallop Capillary Refill: Less Than 3 Seconds Gastrointestinal: normal bowel sounds, non tender, soft, no organomegaly, no pulsatile mass Extremity: Normal Capillary Refill, Normal Inspection, No Pedal Edema Neurologic/Psychiatric: Alert, Oriented x3, No Motor/Sensory Deficits Skin: Normal Color, Warm/Dry Lymphatic: No Adenopathy Results Lab Laboratory Tests 06/03/19 23:40 06/04/19 03:50 Assessment/Plan Assessment/Plan AsthmaAE -Pt was admitted to ICU secondary to status asthmaticus. Pt received an hour long SVN. She was switched to just BID DuoNeb tx's per MAT protocol. -increase Duonebs to Q4 and continue advair -D/C mat protocol -Increase SVNS from BID to Q4 and Q2 PRN Hypoxia - never smoker -No hx of COPD -Check CTA of chest Allergic rhinitis -erin Palumbo JASON M DO Jun 04, 2019 13:45 POS
[2019-06-04] MEDS ORDERED: NS 100 ML (IVPB) BAG IV ONE (14:00)
[2019-06-04] MEDS ORDERED: HOLD METFORMIN - RECEIVED CONTRAST 20 ML VIAL IV SCH (14:00)
[2019-06-04] MEDS ORDERED: IOHEXOL 350 MG/ML 100 ML (OMNIPAQUE 350) VIAL IV ONE (14:00)
[2019-06-04] MEDS ORDERED: CATHETER FLUSH 10 ML SYR IV PRN (14:00)
--- NOTE | 2019-06-04 14:34 | Diagnostic Imaging Report ---
PROCEDURE: CT angiography of the chest with contrast. TECHNIQUE: Multiple contiguous axial images were obtained through the chest after uneventful bolus administration of intravenous contrast. 3D reconstructed CTA MIP acquisitions were also performed. Auto Exposure Controls were utilized during the CT exam to meet ALARA standards for radiation dose reduction. INDICATION: Trouble breathing. Hypoxia. Sharp chest pain. COMPARISON: Chest radiograph performed earlier the same date. FINDINGS: This helical CT pulmonary angiogram is diagnostic to the subsegmental level branches of the pulmonary artery and demonstrates no pulmonary emboli. The heart and great vessels are unremarkable. There is no pericardial effusion. There is no axillary, mediastinal, or hilar adenopathy. The lungs demonstrate no consolidation, nodules, or other parenchymal abnormality. No pleural effusion is seen. Osseous structures appear normal. Limited views of the upper abdomen are unremarkable. IMPRESSION: 1. No acute pulmonary embolus. Negative CT chest. Dictated by: Dictated on workstation # [id number]
[2019-06-04] MEDS: RT-ALBUTEROL/IPRATROPIUM 3 ML (DUONEB) VIAL INH SCH ×3 (15:43→23:04)
--- NOTE | 2019-06-04 15:48 | NUR ---
oxygen per nasal cannula removed at this time, will cont to monitor this patient for desaturation throughout the remainder of this shift.
[2019-06-04] MEDS ORDERED: RT-ALBUTEROL/IPRATROPIUM 3 ML (DUONEB) VIAL INH SCH (21:00)
[2019-06-04] MEDS: guaiFENesin (MUCINEX) 600 MG TAB PO SCH (21:54)
[2019-06-05] MEDS: RT-ALBUTEROL/IPRATROPIUM 3 ML (DUONEB) VIAL INH SCH ×5 (03:37→23:28)
[2019-06-05 04:54] VITALS: BP 135/73
[2019-06-05] MEDS: inSUlin ASPART (NovoLOG) 1 UNIT/0.01 ML (CHARGE PER UNIT) SC SCH ×7 (06:20→21:19)
[2019-06-05] MEDS: methylPREDNISolone 40 MG/ML (Solu-MEDROL) VIAL IV SCH ×4 (06:20→17:08)
[2019-06-05 08:00] VITALS: BP 149/82
[2019-06-05] MEDS: RT-ADVAIR HFA 115/21 MCG PER PUFF IH SCH ×2 (09:13→18:50)
[2019-06-05] MEDS: guaiFENesin (MUCINEX) 600 MG TAB PO SCH ×2 (09:14→21:18)
[2019-06-05] MEDS: lisINopril 10 MG (PRINIVIL) TABLET PO SCH (09:15)
[2019-06-05 12:00] VITALS: BP 147/80
--- NOTE | 2019-06-05 12:13 | Progress Note - Hospitalist ---
Subjective HPI/CC On Admission Date Seen by Provider: Jun 05, 2019 Time Seen by Provider: 11:00 Subjective/Events-last exam Patient feels much better Walking around Does not have any medications at home he cannot feel any type of medication other than [facility] Overall much improved Review of Systems Pulmonary: Cough Focused Exam Lactate Level 06/03/19 23:40: Lactic Acid Level 1.42 Objective Exam Vital Signs Vital Signs Date Time Temp Pulse Resp B/P (MAP) Pulse Ox O2 Delivery O2 Flow Rate FiO2 06/05/19 12:00 36.8 80 20 147/80 (102) 95 Room Air 06/05/19 09:00 1.00 06/04/19 08:07 21 Capillary Refill : Less Than 3 Seconds General Appearance: No Apparent Distress, WD/WN, Chronically ill, Obese Respiratory: Lungs Clear, Normal Breath Sounds Cardiovascular: Regular Rate, Rhythm Neurologic/Psychiatric: Alert, Oriented x3, No Motor/Sensory Deficits, Normal Mood/Affect Results/Procedures Lab Patient resulted labs reviewed. Assessment/Plan Assessment and Plan Assess & Plan/Chief Complaint Assessment: Status asthmaticus Suspicion for sleep apnea Diabetes mellitus Chronic pain Plan: Home meds Hold discharge until tomorrow to be able to fill her meds Diagnosis/Problems Diagnosis/Problems (1) Status asthmaticus (2) Morbid obesity (3) Diabetes mellitus Status: Acute Clinical Quality Measures DVT/VTE Risk/Contraindication: Risk Factor Score Per Nursin RFS Level Per Nursing on Admit: 4+=Very High AYANNA GIFFORD DO Jun 05, 2019 12:13 POS
[2019-06-05] MEDS ORDERED: ONDANSETRON 4 MG (ZOFRAN) ORAL DISSOLVE TAB SL PRN (13:00)
[2019-06-05] MEDS ORDERED: ACETAMINOPHEN PO PRN (13:00)
[2019-06-05] MEDS ORDERED: CHLORPHENIRAMINE PO PRN (13:00)
[2019-06-05] MEDS ORDERED: [UNRECOGNIZED DRUG - OTHER] PO PRN (13:00)
[2019-06-05] MEDS ORDERED: CYCLOBENZAPRINE 10 MG (FLEXERIL) TAB PO PRN (13:00)
[2019-06-05] MEDS ORDERED: APAP 300 MG/CODEINE 30 MG (TYLENOL #3) TAB PO SCH (13:00)
[2019-06-05] MEDS: ACYCLOVIR 400 MG TABLET (ZOVIRAX) PO SCH ×2 (13:26→21:18)
[2019-06-05 16:21] VITALS: BP 148/75
[2019-06-05] MEDS ORDERED: inSUlin (REGULAR) HUMAN 1 UNIT/0.01 ML (CHARGE PER UNIT) SC ONE (17:00)
[2019-06-05] MEDS: metFORMIN 500 MG (GLUCOPHAGE) TAB PO SCH (17:05)
[2019-06-05 19:30] VITALS: BP 135/66
[2019-06-06] VITALS: BP 148/80
[2019-06-06] MEDS: methylPREDNISolone 40 MG/ML (Solu-MEDROL) VIAL IV SCH ×3 (00:12→11:45)
[2019-06-06] MEDS: RT-ALBUTEROL/IPRATROPIUM 3 ML (DUONEB) VIAL INH SCH ×3 (03:59→10:18)
[2019-06-06 04:00] VITALS: BP 146/84
[2019-06-06] MEDS: inSUlin ASPART (NovoLOG) 1 UNIT/0.01 ML (CHARGE PER UNIT) SC SCH ×4 (06:33→11:46)
[2019-06-06] MEDS: metFORMIN 500 MG (GLUCOPHAGE) TAB PO SCH (06:33)
[2019-06-06] MEDS ORDERED: GLIMEPIRIDE 4 MG (AMARYL) TAB PO SCH (07:00)
[2019-06-06 08:00] VITALS: BP 176/83
[2019-06-06] MEDS ORDERED: lisINopril 10 MG (PRINIVIL) TABLET PO SCH (09:00)
[2019-06-06] MEDS: ACYCLOVIR 400 MG TABLET (ZOVIRAX) PO SCH (09:26)
[2019-06-06] MEDS: guaiFENesin (MUCINEX) 600 MG TAB PO SCH (09:26)
[2019-06-06] MEDS: lisINopril 10 MG (PRINIVIL) TABLET PO SCH (09:26)
[2019-06-06] MEDS: RT-ADVAIR HFA 115/21 MCG PER PUFF IH SCH (10:18)
[2019-06-06] MEDS ORDERED: [UNRECOGNIZED DRUG - CODE] PO (11:15)
[2019-06-06] MEDS ORDERED: ACET-2267 PO (11:15)
[2019-06-06] MEDS ORDERED: IBUP-30 PO (11:15)
[2019-06-06] MEDS ORDERED: ALBU2.5V4 NEB ×2 (11:26→12:37)
[2019-06-06] MEDS ORDERED: INSU100I10 SQ (11:26)
[2019-06-06] MEDS ORDERED: METF500T19 PO ×2 (11:26→12:37)
[2019-06-06] MEDS ORDERED: EMPA25TA PO (11:26)
[2019-06-06] MEDS ORDERED: CANA100T PO (11:26)
[2019-06-06] MEDS ORDERED: LISI40TA PO ×2 (11:32→12:37)
[2019-06-06] MEDS ORDERED: INSU100I32 SQ (11:33)
[2019-06-06] MEDS ORDERED: RT-ALBUINH IH ×2 (11:33→12:37)
[2019-06-06] MEDS ORDERED: INSU100I23 SQ (11:33)
[2019-06-06] MEDS ORDERED: TRULICITY SC (11:33)
--- NOTE | 2019-06-06 11:39 | NUR ---
CALLED [facility] FOR A LIST OF RECENTLY FILLED MEDICATIONS. I WENT OVER THIS LIST WITH THE PATIENT. [facility] FILLED: 05-20-19 GLUCOGUARD TEST STRIPS 05-18-19 INVOKANA 100MG DAILY 05-18-19 LANTUS SOLOSTAR 35 UNITS HS 05-10-19 DUONEB Q6H PRN (STATES SHE IS OUT OF THIS AND THEY WOULD NOT REFILL) 05-10-19 PREDNISONE 50MG DAILY X 5 DAYS (FINISHED) 05-10-19 PROAIR INHALER 2 PUFFS Q6H PRN 05-10-19 BENZONATATE 100MG TID X 7 DAYS PRN (FINISHED) 05-10-19 Z NINI (FINISHED) 05-09-19 ALBUTEROL 0.083% Q4H PRN 04-30-19 JARDIANCE 25MG DAILY #90 03-30-19 METFORMIN ER 500MG 2 BID #360 (STATES SHE ONLY TAKES 2 AM ONLY) DECEMBER LISINOPRIL 40MG DAILY #90 (STATES SHE IS STILL TAKING THESE) SHE ALSO REPORTS SHE TAKES THE FOLLOWING THAT SHE RECEIVES FROM [facility]: HUMALOG 16 UNITS TID AC TRESIBA 56 UNITS AM TRULICITY WEEKLY ON SUNDAYS I CALLED AND LEFT A MESSAGE FOR THE NURSE TO CALL ME BACK TO VERIFY THESE ARE THROUGH [facility] AND WHAT DOSE THE TRULICITY IS. I WILL UPDATE WHEN THEY RETURN MY CALL. SHE TAKES THE FOLLOWING OTC: TYLENOL PRN IBU PRN MUCINEX FAST MAX LIQUID PRN Addendum: 06/06/19 at 1242 by PACO GARCIA [facility] NURSE FROM [facility] CALLED BACK AT THIS TIME AND VERIFIED THE PATIENT HAS HUMALOG, TRESIBA, AND TRULICITY 0.75MG AUTHORIZED THROUGH PALS. DISCHARGE HAS ALREADY BEEN DONE SO I WAS UNABLE TO REVIEW THEM ON THE MED REC AT THIS TIME.
[2019-06-06 12:00] VITALS: BP 139/67
--- NOTE | 2019-06-06 12:28 | Discharge Summary ---
Diagnosis/Chief Complaint Date of Admission Jun 04, 2019 at 01:00 Date of Discharge 06/06/19 Admission Diagnosis Admission Diagnosis See problem list Discharge Diagnosis See below Problems/Diagnosis: (1) Status asthmaticus Assessment & Plan: - Patient was started on inhaled steroid and sent nebulizer solution, discussed the importance of tobacco cessation Qualifiers: Qualified Codes: J45.42 - Moderate persistent asthma with status asthmaticus Status: Acute (2) Morbid obesity Assessment & Plan: - Discussed the need for weight loss, needs outpatient sleep study Status: Chronic Discharge Summary-Simple/Stand Consultations Dr Medrano: Pulmonary and Critical care Discharge Physical Examination Allergies: Coded Allergies: Penicillins (Verified Allergy, Unknown, 06/04/19) Vitals & I&Os Vital Sign - Last 12Hours Date Time Temp Pulse Resp B/P (MAP) Pulse Ox O2 Delivery O2 Flow Rate FiO2 06/06/19 10:18 97 Room Air 06/06/19 08:00 36.4 88 18 176/83 (114) 06/05/19 09:00 1.00 06/04/19 08:07 21 Intake and Output 06/06/19 00:00 Intake Total 5900 ml Balance 5900 ml General Appearance: Alert, Oriented X3, Cooperative, No Acute Distress HEENT: Mucous Memb Moist/[place] Respiratory: Clear to Auscultation, Normal Air Movement Cardiovascular: Regular Rate, No Murmurs Abdominal: Normal Bowel Sounds, Soft, No Tenderness, No Masses Extremities: No Edema, No Tenderness/Swelling Skin: No Rashes, No Breakdown Neuro: Normal Gait, Normal Speech, Strength at 5/5 X4 Ext, Sensation Intact, Cranial Nerves 3-12 NL Psych/Mental Status: Mental Status NL, Mood NL Hospital Course Was the Problem List Reviewed?: Yes See final discharge diagnosis. Other pending tests NEEDS OUTPATIENT SLEEP STUDY Discussion & Recommendations 43 yo F that presented with worsening shortness of breath and found to be in status asthmaticus. Patient was able to be titrated to RA. She was sent home on a new inhaled steroid and nebulizer solution. Discussed the need for tobacco cessation and outpatient sleep study. Discharge Condition at discharge stable Instructions to patient/family Please see electronic discharge instructions given to patient. Discharge Medications Reviewed and agree with Discharge Medication list on patient's Discharge Instruction sheet Clinical Quality Measures DVT/VTE Risk/Contraindication: Risk Factor Score Per Nursin RFS Level Per Nursing on Admit: 4+=Very High Copy Copies To 1: CHCAura LOCKWOOD HOLLY R MD Jun 06, 2019 12:28 POS
[2019-06-06] MEDS ORDERED: GLIM4TAB3 PO (12:37)
[2019-06-06] MEDS ORDERED: FLUT12AE4 IH (12:37)
[2019-06-06] MEDS ORDERED: GUAI600T43 PO (12:37)
--- NOTE | 2019-06-06 12:41 | Discharge Instructions ---
Discharge [facility] Reconcile Patient Problems Problems Reviewed?: Yes Discharge Medications New, Converted or Re-Newed RX: Transmitted to Pharmacy New Medications: Fluticasone/Salmeterol (Advair Hfa 115-21 Mcg Inhaler) 12 Gm Hfa.aer.ad 2 PUFF IH BID@,20, #1 INHALER Glimepiride (Glimepiride) 4 Mg Tablet 4 MG PO BIDAC, #60 TAB Guaifenesin (Mucinex) 600 Mg Tab.er.12h 600 MG PO BID, #14 TAB Changed Medications: Metformin HCl (Metformin HCl ER) 500 Mg Tab.er.24h 1000 MG PO DAILY, #60 TAB (Changed from: TAKES 2 (500MG) TABLETS) TAKES 2 (500MG) TABLETS RESTART ON THURSDAY due to contrast given while in hospital Continued Medications: Acetaminophen (Tylenol Extra Strength) 500 Mg Tablet 1000 MG PO Q4H PRN for PAIN-MILD (1-4), TAB Albuterol Sulfate (Albuterol Sulfate) 2.5 Mg/3 Ml Vial.neb 2.5 MG NEB Q4H PRN for SHORTNESS OF BREATH, #10 EA (This prescription has been renewed) Albuterol Sulfate (Proair Hfa) 1 Puff Puff 2 PUFF IH Q6H PRN for SHORTNESS OF BREATH, #1 INHALER (This prescription has bee n renewed) 1 PUFF = 90 MCG Canagliflozin (Invokana) 100 Mg Tablet 100 MG PO DAILY, TAB Insulin Degludec (Tresiba Flextouch U-100) 100 Unit/1 Ml Insuln.pen 56 UNIT SQ DAILY, EA Insulin Glargine,Hum.rec.anlog (Lantus Solostar) 100 Unit/1 Ml Insuln.pen 35 UNIT SQ HS, EA Insulin Lispro (Humalog Kwikpen) 100 Unit/1 Ml Insuln.pen 16 UNIT SQ TIDAC, EA Lisinopril (Lisinopril) 40 Mg Tablet 40 MG PO DAILY, #30 TAB (This prescription has been renewed) LAST FILLED #December Discontinued Medications: Empagliflozin (Jardiance) 25 Mg Tablet 25 MG PO DAILY, TAB Ibuprofen (Advil) 200 Mg Tablet 400 MG PO Q8H PRN for PAIN-MILD (1-4), TAB Phenylephrine/Dm/Acetaminop/GG (Mucinex Fast-Max Sev Cold Liq) 180 Ml Liquid 20 ML PO Q4H PRN for CONGESTION, EA [Trulicity] () SC Ding Activity & Diet Discharge Diet: ADA Diet, Cardiac Diet Activity as Tolerated: Yes Orders-Post D/C & Referrals Pneu Vac Indicated: Yes Copy Copies To 1: Aura CRUZ HOLLY R MD Jun 06, 2019 12:41 POS
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
== END 2019-06-06 12:50 | disposition home or self-care (01) | DRG 202 ==
LOC: EDUNIT# 23:27 → ER 23:29 → ICU 06-04 01:00 → 4TH 06-04 13:40
PROVIDERS: ADMIT Internal Medicine; ATTEND Internal Medicine
DX: J45.902 Unspecified asthma with status asthmaticus (principal); R09.1 Pleurisy; R09.02 Hypoxemia; E66.01 Morbid (severe) obesity due to excess calories; Z68.41 Body mass index [BMI] 40.0-44.9, adult; E11.9 Type 2 diabetes mellitus without complications; I10 Essential (primary) hypertension; Z79.84 Long term (current) use of oral hypoglycemic drugs
CPT/HCPCS: 36415; 71045; 71046; 71275; 80053; 81000; 82805; 82962; 83605; 83735; 84484; 84703; 85025; 85610; 85730; 87040; 87088; 87804; 93005; 94640; 94664; 94760; 96361; 96365; 96375